=== PATIENT | male | born 1955 | race Caucasian/White ===

== ENCOUNTER 2020-10-25 14:48 | Observation (INO) ==
[2020-10-25] MEDS ORDERED: Ondansetron 4 MG/2 ML VIAL IVP PRN (19:25)
[2020-10-25] MEDS ORDERED: Acetaminophen 325 MG TABLET PO PRN (19:25)
[2020-10-25] MEDS ORDERED: Naloxone 0.4 MG/ML INJ IVP PRN (19:25)
[2020-10-25] MEDS ORDERED: Nitroglycerin 0.4 MG TAB.SUBL SL PRN (19:32)
[2020-10-25] MEDS ORDERED: Perflutren Lipid Microsphere 1.3 ML in 0.9 % Sodium Chloride 8.7 ML IVP PRN (19:33)
[2020-10-25] MEDS ORDERED: Furosemide 20 MG/2 ML VIAL IVP ONE (19:59)
[2020-10-25] MEDS: Metoprolol XL (24 HR) Succ 25 MG TAB.ER.24H PO SCH (20:22)
[2020-10-25] MEDS: Albuterol 2.5 MG/3 ML NEBULIZER IH PRN (20:29)
[2020-10-25 20:30] LABS: Estimated Average Glucose 131 mg/dl; Hemoglobin A1C 6.2 %
[2020-10-26] MEDS: Albuterol 2.5 MG/3 ML NEBULIZER IH PRN ×3 (01:45→14:43)
[2020-10-26 02:52] LABS: Basophils # 0.1 K/mcL (0.0-0.2); Basophils % 0.7 %; Eosinophils # 0.3 K/mcL (0.0-0.6); Eosinophils % 2.4 %; Hematocrit 46.8 % (37.5-50.1); Hemoglobin 15.3 g/dL (12.9-16.9); Immature Granulocytes % 0.3 % (0-4); Lymphocytes # 3.5 K/mcL (0.6-4.6); Mean Corpuscular HGB Conc 32.7 g/dL (31.6-35.5); Mean Corpuscular Hemoglobin 29.8 pg (28.0-33.3); Mean Corpuscular Volume 91.2 fL (83.0-100.0); Mean Platelet Volume 9.9 fL (9.4-12.4); Monocytes # 0.9 K/mcL (0.0-1.3); Monocytes % 8.3 %; Neutrophils # 5.7 K/mcL (1.6-8.9); Platelet Count 186 K/mcL (140-400); Red Blood Count 5.13 M/mcL (4.19-5.50); Red Cell Distribution Width 12.7 % (11.5-14.5); Segmented Neutrophils % 54.3 %; White Blood Count 10.4 K/mcL (4.3-11.1)
[2020-10-26 03:12] LABS: Chol/HDL Ratio 4.2 (0-4.9)
[2020-10-26 03:14] LABS: BUN/Creatinine Ratio 13 (6-26); Blood Urea Nitrogen 13 mg/dL (8-23); Calcium 9.1 mg/dL (8.6-10.3); Carbon Dioxide 24 mEq/L (23-29); Chloride 106 mEq/L (98-107); Glucose 99 mg/dL (70-105); Osmolality,Calculated 288 (280-300); Potassium 3.9 mEq/L (3.5-5.1); Sodium 139 mEq/L (136-145); eGFR For African Americans > 60 (> 60); eGFR For Non-African Americans > 60 (> 60)
[2020-10-26 03:17] LABS: Troponin I < 0.03 ng/mL (< 0.04)
[2020-10-26] MEDS ORDERED: *HR* Heparin 5,000 UNIT/ML VIAL SQ SCH (06:00)
[2020-10-26] MEDS ORDERED: Regadenoson 0.4 MG/5 ML SYRINGE IVP ONE (07:04)
[2020-10-26] MEDS ORDERED: Aspirin 81 MG TAB.CHEW PO SCH (09:00)
[2020-10-26] MEDS ORDERED: Metoprolol XL (24 HR) Succ 25 MG TAB.ER.24H PO SCH ×2 (09:00→21:00)
[2020-10-26] MEDS: Metoprolol XL (24 HR) Succ 25 MG TAB.ER.24H PO SCH (13:28)
[2020-10-26] MEDS ORDERED: Nicotine 2 MG GUM BC PRN (13:49)
[2020-10-26 15:44] VITALS: BP 149/81
[2020-10-27] MEDS ORDERED: Aspirin Enteric Coated 81 MG Tablet PO SCH (09:00)
== END 2020-10-26 16:22 | disposition home or self-care (01) ==
LOC: 3BNU → SUATTDRO 17:44
PROVIDERS: ADMIT Internal Medicine; ATTEND Internal Medicine

== ENCOUNTER 2021-01-15 06:08 | Inpatient (IN) ==
[2021-01-15] MEDS ORDERED: CeFAZolin Syr 2,000MG/20 ML 2,000 MG/20 ML SYRINGE IVPB ONE (06:31)
[2021-01-15] MEDS ORDERED: NiCARdipine 2.5 MG/10 ML Syringe IVPB ONE (06:39)
[2021-01-15] MEDS ORDERED: *HR* Rocuronium Bromide 50 MG/5 ML VIAL ONE ×2 (06:47→11:15)
[2021-01-15] MEDS ORDERED: Papaverine 60 MG/2 ML VIAL IVP ONE (06:48)
[2021-01-15] MEDS ORDERED: Famotidine 20 MG/2 ML VIAL ONE (06:48)
[2021-01-15] MEDS ORDERED: *HR* Etomidate 20 MG/10 ML AMPUL IVP ONE ×3 (06:48→17:47)
[2021-01-15] MEDS ORDERED: Calcium Gluconate 1,000 MG/10 ML VIAL ONE (06:50)
[2021-01-15] MEDS ORDERED: Tranexamic Acid 1,000 MG/10 ML VIAL ONE (06:50)
[2021-01-15] MEDS ORDERED: Protamine Sulfate 250 MG/25 ML VIAL IVP ONE (06:50)
[2021-01-15] MEDS: Ringers Solution, Lactated 1,000 ML IVC SCH ×2 (06:57→23:00)
[2021-01-15] MEDS: Chlorhexidine Rinse 15 ML MOUTHWASH MM SCH ×3 (06:58→20:16)
[2021-01-15] MEDS ORDERED: *HR* Midazolam HCl 5 MG/5 ML VIAL IVP ONE (07:00)
[2021-01-15] MEDS ORDERED: *HR* FentaNYL (PF) 1,000 MCG/20 ML VIAL ONE (07:00)
[2021-01-15] MEDS ORDERED: Heparin 15,000 UNIT in 0.9 % Sodium Chloride 500 ML IV ONE (07:45)
[2021-01-15] MEDS ORDERED: Dextrose 50 % in Water (Vial) 30 ML, Sodium Bicarbonate 20 MEQ, Potassium Chloride 15 M... TH ONE (07:45)
[2021-01-15] MEDS ORDERED: Insulin Human Regular 100 UNIT in 0.9 % Sodium Chloride 100 ML IV PRN (07:45)
[2021-01-15] MEDS ORDERED: Norepinephrine 4 MG in 0.9 % Sodium Chloride 250 ML IVC PRN (07:45)
[2021-01-15] MEDS ORDERED: Dextrose 50 % in Water (Vial) 30 ML, Sodium Bicarbonate 20 MEQ, Lidocaine 1% 5 ML, Insu... TH ONE ×3 (07:45)
[2021-01-15] MEDS ORDERED: Tranexamic Acid 1,000 MG/10 ML VIAL IR ONE (07:49)
[2021-01-15] MEDS ORDERED: *HR* Phenylephrine 10 MG/ML VIAL IVC ONE (07:49)
[2021-01-15] MEDS ORDERED: *HR* Heparin 10,000 UNIT/10 ML VIAL IR ONE (07:49)
[2021-01-15] MEDS ORDERED: *HR* Magnesium Sulfate 2 GM/50 ML PIGGYBACK IVPB ONE (07:49)
[2021-01-15] MEDS ORDERED: Albumin Human 25% 25 GM/100 ML IV.SOLN IVPB ONE (07:49)
[2021-01-15] MEDS ORDERED: Lidocaine 2% Syringe 100 MG/5 ML IVP ONE ×3 (07:49→16:15)
[2021-01-15] MEDS ORDERED: Mannitol 25% vial 12.5 GM/50 ML VIAL IVPB ONE (07:49)
[2021-01-15 08:05] LABS: ABG Base Excess 0 mEq/L (-2 to 3); ABG Chloride 107 mEq/L (98-107); ABG Glucose 103 mg/dL (60-95); ABG HCO3 27 mEq/L (21-27); ABG Ionized Calcium 1.21 mmol/L (1.15-1.35); ABG Oxygen Saturation 100 % (95-98); ABG PCO2 52 mmHg (35-45); ABG PH 7.32 pH Units (7.32-7.45); ABG PO2 196 mmHg (85-104); ABG TCO2 29 mEq/L (20-26)
[2021-01-15] MEDS ORDERED: *HR* Amiodarone 150 MG/3 ML VIAL IVPB ONE (08:41)
[2021-01-15] MEDS ORDERED: Amiodarone Premix 360 MG/200 ML BAG IVC ONE ×2 (08:41→12:03)
[2021-01-15 09:30] LABS: ABG Base Excess -1 mEq/L (-2 to 3); ABG Chloride 105 mEq/L (98-107); ABG Glucose 142 mg/dL (60-95); ABG HCO3 26 mEq/L (21-27); ABG Ionized Calcium 1.19 mmol/L (1.15-1.35); ABG Oxygen Saturation 97 % (95-98); ABG PCO2 53 mmHg (35-45); ABG PO2 100 mmHg (85-104); ABG TCO2 28 mEq/L (20-26)
[2021-01-15 10:47] LABS: ABG Base Excess 1 mEq/L (-2 to 3); ABG Chloride 102 mEq/L (98-107); ABG Glucose 188 mg/dL (60-95); ABG HCO3 25 mEq/L (21-27); ABG Ionized Calcium 0.96 mmol/L (1.15-1.35); ABG Oxygen Saturation 100 % (95-98); ABG PCO2 38 mmHg (35-45); ABG PH 7.43 pH Units (7.32-7.45); ABG PO2 622 mmHg (85-104); ABG TCO2 27 mEq/L (20-26)
[2021-01-15 11:15] LABS: ABG Base Excess -1 mEq/L (-2 to 3); ABG Chloride 103 mEq/L (98-107); ABG Glucose 158 mg/dL (60-95); ABG HCO3 24 mEq/L (21-27); ABG Ionized Calcium 1.14 mmol/L (1.15-1.35); ABG Oxygen Saturation 100 % (95-98); ABG PCO2 38 mmHg (35-45); ABG PH 7.41 pH Units (7.32-7.45); ABG PO2 585 mmHg (85-104); ABG TCO2 25 mEq/L (20-26)
[2021-01-15 11:23] LABS: ABG Base Excess -2 mEq/L (-2 to 3); ABG Chloride 104 mEq/L (98-107); ABG Glucose 147 mg/dL (60-95); ABG HCO3 24 mEq/L (21-27); ABG Ionized Calcium 1.41 mmol/L (1.15-1.35); ABG Oxygen Saturation 97 % (95-98); ABG PCO2 43 mmHg (35-45); ABG PH 7.35 pH Units (7.32-7.45); ABG PO2 90 mmHg (85-104); ABG TCO2 25 mEq/L (20-26)
[2021-01-15] MEDS ORDERED: Albumin Human 5% 12.5 GM/250 ML IV.SOLN IVPB PRN (12:03)
[2021-01-15] MEDS ORDERED: Potassium Chloride 40 MEQ/200 ML BAG IVPB PRN (12:03)
[2021-01-15] MEDS ORDERED: Insulin Regular, Human 100 UNIT/ML IV PRN (12:03)
[2021-01-15] MEDS ORDERED: Acetaminophen 325 MG TABLET PO PRN (12:03)
[2021-01-15] MEDS ORDERED: *HR* LORazepam 2 MG/ML VIAL IVP PRN (12:03)
[2021-01-15] MEDS ORDERED: Naloxone 0.4 MG/ML INJ IVP PRN (12:03)
[2021-01-15] MEDS ORDERED: *HR* Promethazine 25 MG/ML VIAL IM PRN (12:03)
[2021-01-15] MEDS ORDERED: *HR* Dextrose 50 % in Water (Vial) 50 ML VIAL IVP PRN (12:03)
[2021-01-15] MEDS ORDERED: Ondansetron 4 MG/2 ML VIAL IVP PRN (12:03)
[2021-01-15] MEDS ORDERED: Sennosides 8.6 MG TABLET PO PRN (12:03)
[2021-01-15 12:27] LABS: ABG Base Excess 0 mEq/L (-2 to 3); ABG HCO3 27 mEq/L (21-27); ABG Oxygen Saturation 100 % (95-98); ABG PCO2 49 mmHg (35-45); ABG PH 7.34 pH Units (7.32-7.45); ABG PO2 187 mmHg (85-104); ABG TCO2 28 mEq/L (20-26); Blood Gas Modality ASSIST CONTROL; Blood Gas VT 550 cc
[2021-01-15 12:35] LABS: Basophils % 0.3 %; Eosinophils % 0.7 %; Hemoglobin 12.4 g/dL (12.9-16.9); Platelet Count 124 K/mcL (140-400)
[2021-01-15 12:36] LABS: Basophils # 0.1 K/mcL (0.0-0.2); Eosinophils # 0.1 K/mcL (0.0-0.6); Hematocrit 38.1 % (37.5-50.1); Immature Granulocytes % 0.8 % (0-4); Immature Platelets 4.9 % (1.1-6.1); Lymphocytes % 11.2 %; Mean Corpuscular HGB Conc 32.5 g/dL (31.6-35.5); Mean Corpuscular Hemoglobin 29.7 pg (28.0-33.3); Mean Corpuscular Volume 91.1 fL (83.0-100.0); Mean Platelet Volume 9.9 fL (9.4-12.4); Monocytes # 0.9 K/mcL (0.0-1.3); Monocytes % 5.4 %; Neutrophils # 14.2 K/mcL (1.6-8.9); Red Blood Count 4.18 M/mcL (4.19-5.50); Red Cell Distribution Width 12.5 % (11.5-14.5); Segmented Neutrophils % 81.6 %
[2021-01-15 12:39] LABS: White Blood Count 17.4 K/mcL (4.3-11.1)
[2021-01-15 12:45] LABS: INR 1.4; Prothrombin Time 15.5 Seconds (9.4-12.1)
[2021-01-15] MEDS: niCARdipine 20 MG/200 ML MLS IVC SCH ×4 (12:45→23:00)
[2021-01-15 12:48] LABS: Activated Partial Thrombo Time 32.4 Seconds (26.0-36.0)
[2021-01-15] MEDS: *HR* FentaNYL (PF) 100 MCG/2 ML VIAL IVP PRN ×2 (12:55→14:15)
[2021-01-15 13:07] LABS: BUN/Creatinine Ratio 13 (6-26); Blood Urea Nitrogen 11 mg/dL (8-23); Calcium 8.2 mg/dL (8.6-10.3); Carbon Dioxide 26 mEq/L (23-29); Chloride 108 mEq/L (98-107); Glucose 112 mg/dL (70-105); Magnesium 2.4 mg/dL (1.6-2.6); Osmolality,Calculated 288 (280-300); Potassium 3.9 mEq/L (3.5-5.1); Sodium 139 mEq/L (136-145); eGFR For African Americans > 60 (> 60); eGFR For Non-African Americans > 60 (> 60)
[2021-01-15] MEDS: 0.9 % Sodium Chloride 1,000 ML IVC SCH ×2 (13:51→23:00)
[2021-01-15] MEDS: *HR* OxyCODONE/APAP 5/325 TABLET PO PRN (14:43)
[2021-01-15] MEDS: Norepinephrine 4 MG/254 ML IV.SOLN IVC SCH ×2 (14:51→18:26)
[2021-01-15] MEDS: *HR* LORazepam 2 MG/ML VIAL IVP PRN ×2 (16:00→23:41)
[2021-01-15] MEDS ORDERED: Lidocaine 2% Syringe 100 MG/5 ML ONE (16:16)
[2021-01-15] MEDS ORDERED: Furosemide 40 MG/4 ML VIAL ONE (16:16)
[2021-01-15 17:00] LABS: ABG Base Excess -1 mEq/L (-2 to 3); ABG HCO3 26 mEq/L (21-27); ABG Oxygen Saturation 93 % (95-98); ABG PCO2 51 mmHg (35-45); ABG PH 7.31 pH Units (7.32-7.45); ABG PO2 73 mmHg (85-104); ABG TCO2 27 mEq/L (20-26); Blood Gas Modality ASSIST CONTROL; Blood Gas VT 550 cc
[2021-01-15] MEDS: Amiodarone Premix 360 MG/200 ML BAG IVC SCH (17:00)
[2021-01-15 17:18] LABS: Hematocrit 39.7 % (37.5-50.1); Hemoglobin 13.2 g/dL (12.9-16.9)
[2021-01-15] MEDS ORDERED: Furosemide 40 MG/4 ML VIAL IVP ONE ×2 (17:47→21:00)
[2021-01-15] MEDS: FentaNYL (PF) 1,000 MCG/100 ML IV.SOLN IVC SCH (18:25)
[2021-01-15 19:58] LABS: ABG Base Excess -1 mEq/L (-2 to 3); ABG HCO3 27 mEq/L (21-27); ABG Oxygen Saturation 95 % (95-98); ABG PCO2 59 mmHg (35-45); ABG PH 7.27 pH Units (7.32-7.45); ABG PO2 86 mmHg (85-104); ABG TCO2 29 mEq/L (20-26); Blood Gas Modality AF; Blood Gas VT 550 cc
[2021-01-15] MEDS: CeFAZolin 2 GM/120 ML BAG IVPB SCH (20:16)
[2021-01-15 23:57] LABS: ABG Base Excess -2 mEq/L (-2 to 3); ABG HCO3 25 mEq/L (21-27); ABG Oxygen Saturation 96 % (95-98); ABG PCO2 52 mmHg (35-45); ABG PH 7.29 pH Units (7.32-7.45); ABG PO2 95 mmHg (85-104); ABG TCO2 27 mEq/L (20-26); Blood Gas Modality AF; Blood Gas VT 550 cc
[2021-01-16] MEDS: FentaNYL (PF) 1,000 MCG/100 ML IV.SOLN IVC SCH ×4 (01:27→23:07)
[2021-01-16] MEDS: niCARdipine 20 MG/200 ML MLS IVC SCH ×5 (03:03→18:11)
[2021-01-16 03:24] LABS: Basophils % 0.2 %; Hematocrit 43.6 % (37.5-50.1); Hemoglobin 13.7 g/dL (12.9-16.9); Immature Granulocytes % 0.8 % (0-4); Lymphocytes # 1.5 K/mcL (0.6-4.6); Lymphocytes % 8.1 %; Mean Corpuscular HGB Conc 31.4 g/dL (31.6-35.5); Mean Corpuscular Hemoglobin 29.7 pg (28.0-33.3); Mean Corpuscular Volume 94.6 fL (83.0-100.0); Mean Platelet Volume 10.3 fL (9.4-12.4); Monocytes # 1.6 K/mcL (0.0-1.3); Monocytes % 8.3 %; Neutrophils # 15.4 K/mcL (1.6-8.9); Platelet Count 141 K/mcL (140-400); Red Blood Count 4.61 M/mcL (4.19-5.50); Red Cell Distribution Width 13.2 % (11.5-14.5); Segmented Neutrophils % 82.6 %; White Blood Count 18.6 K/mcL (4.3-11.1)
[2021-01-16 03:24] LABS: ABG Base Excess -3 mEq/L (-2 to 3); ABG HCO3 26 mEq/L (21-27); ABG Oxygen Saturation 95 % (95-98); ABG PCO2 61 mmHg (35-45); ABG PH 7.24 pH Units (7.32-7.45); ABG PO2 89 mmHg (85-104); ABG TCO2 28 mEq/L (20-26); Blood Gas Modality AF; Blood Gas VT 550 cc
[2021-01-16] MEDS: Amiodarone Premix 360 MG/200 ML BAG IVC SCH (03:31)
[2021-01-16] MEDS: CeFAZolin 2 GM/120 ML BAG IVPB SCH (03:32)
[2021-01-16 04:28] LABS: Potassium 5.7 mEq/L (3.5-5.1)
[2021-01-16] MEDS ORDERED: Insulin Human Regular 10 UNIT in 0.9 % Sodium Chloride 10 ML IV ONE (07:23)
[2021-01-16] MEDS ORDERED: Calcium Gluconate 1gm/50mL 1 GM/50 ML BAG IVPB ONE (07:23)
[2021-01-16] MEDS ORDERED: *HR* Dextrose 50 % in Water (Vial) 50 ML VIAL IVP ONE (07:23)
[2021-01-16 08:02] LABS: ABG Base Excess -2 mEq/L (-2 to 3); ABG HCO3 25 mEq/L (21-27); ABG Oxygen Saturation 95 % (95-98); ABG PCO2 45 mmHg (35-45); ABG PH 7.34 pH Units (7.32-7.45); ABG PO2 78 mmHg (85-104); ABG TCO2 26 mEq/L (20-26); Blood Gas Modality ASSIST CONTROL; Blood Gas VT 550 cc
[2021-01-16 08:15] LABS: INR 1.3; Prothrombin Time 14.5 Seconds (9.4-12.1)
[2021-01-16 08:17] LABS: Activated Partial Thrombo Time 33.1 Seconds (26.0-36.0)
[2021-01-16 08:21] LABS: Potassium,Urine 133.4 mEq/L; Protein/Creatinine Ratio,Urine 0.18 mg/mg (0.00-0.20); Sodium, Urine 19.8 mEq/L
[2021-01-16 08:28] LABS: Albumin 3.8 g/dL (3.5-5.7); Albumin/Globulin Ratio 1.7 (1.1-2.2); Bilirubin,Direct 0.1 mg/dL (0.0-0.2); Bilirubin,Indirect 0.3 mg/dL (0.0-1.0); Bilirubin,Total 0.4 mg/dL (0.3-1.0); Globulin 2.2 g/dL (2.4-3.5); Phosphorous 3.9 mg/dL (2.7-4.5)
[2021-01-16 08:30] LABS: Amorphous Sediment,Urine Few per hpf (None-Few); Bacteria,Urine Few per hpf (None-Few); Bilirubin,Urine Negative (Negative); Blood,Urine Moderate (Negative); Clarity,Urine Ex.Turbid (Clear); Color,Urine Yellow (Yellow); Glucose,Urine (UA) Normal (Normal); Ketones,Urine Negative (Negative); Leukocyte Esterase,Urine Negative (Negative); Mucus,Urine Few per lpf (None-Few); Nitrite,Urine Negative (Negative); Protein,Urine 30 mg/dL (Neg-Trace); RBC,Urine 30-50 per hpf (0-3); Specific Gravity,Urine > 1.030 (1.010-1.025); Urobilinogen,Urine Normal (Normal)
[2021-01-16] MEDS: Chlorhexidine Rinse 15 ML MOUTHWASH MM SCH ×3 (08:45→20:02)
[2021-01-16] MEDS: Aspirin Enteric Coated 81 MG Tablet PO SCH (08:46)
[2021-01-16] MEDS: Pantoprazole 40 MG VIAL IVP SCH (08:46)
[2021-01-16] MEDS: *HR* Amiodarone 200 MG TABLET PO SCH ×2 (08:46→20:02)
[2021-01-16] MEDS: Metoprolol XL (24 HR) Succ 50 MG TAB.ER.24H PO SCH (08:46)
[2021-01-16] MEDS: Nicotine 21 MG PATCH.TD24 TD SCH (08:47)
[2021-01-16] MEDS ORDERED: FLUoxetine 20 MG CAPSULE PO SCH (09:00)
[2021-01-16] MEDS ORDERED: Metoprolol XL (24 HR) Succ 25 MG TAB.ER.24H PO SCH (09:00)
[2021-01-16] MEDS ORDERED: Dextrose Gel 15 GM/37.5 ML TUBE PO PRN ×2 (13:49)
[2021-01-16] MEDS ORDERED: *HR* Dextrose 50 % in Water (Vial) 50 ML VIAL IVP PRN (13:49)
[2021-01-16] MEDS ORDERED: D5% in Water 1,000 ML IVC PRN (13:49)
[2021-01-16] MEDS: 0.9 % Sodium Chloride 1,000 ML IVC SCH ×2 (14:45→18:11)
[2021-01-16 15:24] LABS: BUN/Creatinine Ratio 17 (6-26); Blood Urea Nitrogen 18 mg/dL (8-23); Calcium 8.5 mg/dL (8.6-10.3); Carbon Dioxide 25 mEq/L (23-29); Chloride 104 mEq/L (98-107); Glucose 145 mg/dL (70-105); Osmolality,Calculated 286 (280-300); Potassium 4.3 mEq/L (3.5-5.1); Sodium 136 mEq/L (136-145); eGFR For African Americans > 60 (> 60); eGFR For Non-African Americans > 60 (> 60)
[2021-01-16] MEDS: Insulin LISPRO 300 UNITS/3 ML VIAL SUBQ SCH ×2 (16:07→20:03)
[2021-01-16] MEDS ORDERED: 0.9 % Sodium Chloride 500 ML ONE (16:08)
[2021-01-16] MEDS: Artificial Tears SOLN 15 ML BOTTLE BOTH EYES SCH ×2 (17:16→20:02)
[2021-01-16] MEDS: Ringers Solution, Lactated 1,000 ML IVC SCH (18:11)
[2021-01-16] MEDS: Vancomycin 1,500 MG/265 ML IV.SOLN IVPB SCH (18:51)
[2021-01-16] MEDS: Piperacillin/Tazobactam 3.375 GM in 0.9 % Sodium Chloride Mini Bag 100 ML IVPB SCH (23:06)
[2021-01-17 03:11] LABS: Basophils % 0.1 %; Eosinophils % 0.1 %; Mean Corpuscular Volume 92.7 fL (83.0-100.0); Red Cell Distribution Width 13.1 % (11.5-14.5)
[2021-01-17 03:13] LABS: Hematocrit 30.7 % (37.5-50.1); Hemoglobin 9.8 g/dL (12.9-16.9); Immature Granulocytes % 0.7 % (0-4); Immature Platelets 5.8 % (1.1-6.1); Lymphocytes # 1.1 K/mcL (0.6-4.6); Lymphocytes % 7.4 %; Mean Corpuscular HGB Conc 31.9 g/dL (31.6-35.5); Mean Corpuscular Hemoglobin 29.6 pg (28.0-33.3); Mean Platelet Volume 9.9 fL (9.4-12.4); Monocytes # 1.1 K/mcL (0.0-1.3); Monocytes % 7.5 %; Red Blood Count 3.31 M/mcL (4.19-5.50); Segmented Neutrophils % 84.2 %; White Blood Count 14.2 K/mcL (4.3-11.1)
[2021-01-17 03:13] LABS: VBG Ionized Calcium 0.99 mmol/L (1.15-1.35)
[2021-01-17 03:31] LABS: BUN/Creatinine Ratio 23 (6-26); Blood Urea Nitrogen 18 mg/dL (8-23); Calcium 6.8 mg/dL (8.6-10.3); Carbon Dioxide 23 mEq/L (23-29); Chloride 112 mEq/L (98-107); Glucose 166 mg/dL (70-105); Magnesium 1.7 mg/dL (1.6-2.6); Osmolality,Calculated 296 (280-300); Phosphorous 2.1 mg/dL (2.7-4.5); Potassium 3.6 mEq/L (3.5-5.1); Sodium 140 mEq/L (136-145); eGFR For African Americans > 60 (> 60); eGFR For Non-African Americans > 60 (> 60)
[2021-01-17 04:12] LABS: Platelet Count 74 K/mcL (140-400)
[2021-01-17] MEDS: FentaNYL (PF) 1,000 MCG/100 ML IV.SOLN IVC SCH ×3 (04:43→22:32)
[2021-01-17 04:44] LABS: ABG Base Excess 3 mEq/L (-2 to 3); ABG HCO3 30 mEq/L (21-27); ABG Oxygen Saturation 94 % (95-98); ABG PCO2 53 mmHg (35-45); ABG PH 7.36 pH Units (7.32-7.45); ABG PO2 75 mmHg (85-104); ABG TCO2 32 mEq/L (20-26); Blood Gas VT 550 cc
[2021-01-17] MEDS: Dexmedetomidine HCl 400 MCG/100 ML MLS IVC SCH ×2 (05:39→17:46)
[2021-01-17] MEDS: Vancomycin 1,500 MG/265 ML IV.SOLN IVPB SCH ×2 (06:16→19:38)
[2021-01-17] MEDS ORDERED: Furosemide 40 MG/4 ML VIAL IVP ONE (08:02)
[2021-01-17] MEDS: Aspirin Enteric Coated 81 MG Tablet PO SCH (08:49)
[2021-01-17] MEDS: Piperacillin/Tazobactam 3.375 GM in 0.9 % Sodium Chloride Mini Bag 100 ML IVPB SCH ×3 (08:49→23:09)
[2021-01-17] MEDS: *HR* Amiodarone 200 MG TABLET PO SCH ×2 (08:49→20:38)
[2021-01-17] MEDS: Pantoprazole 40 MG VIAL IVP SCH (08:49)
[2021-01-17] MEDS: Insulin LISPRO 300 UNITS/3 ML VIAL SUBQ SCH ×4 (08:54→20:39)
[2021-01-17] MEDS: Calcium Gluconate 1gm/50mL 1 GM/50 ML BAG IVPB SCH ×3 (08:55→11:00)
[2021-01-17] MEDS: Artificial Tears SOLN 15 ML BOTTLE BOTH EYES SCH ×4 (08:56→20:38)
[2021-01-17] MEDS: Metoprolol XL (24 HR) Succ 50 MG TAB.ER.24H PO SCH (08:57)
[2021-01-17] MEDS: Chlorhexidine Rinse 15 ML MOUTHWASH MM SCH ×2 (08:57→20:38)
[2021-01-17 09:17] LABS: Basophils % 0.1 %; Eosinophils % 0.1 %; Hemoglobin 11.2 g/dL (12.9-16.9); Immature Granulocytes % 0.7 % (0-4); Red Cell Distribution Width 12.9 % (11.5-14.5)
[2021-01-17 09:18] LABS: Hematocrit 34.5 % (37.5-50.1); Immature Platelets 8.2 % (1.1-6.1); Lymphocytes # 1.1 K/mcL (0.6-4.6); Lymphocytes % 7.1 %; Mean Corpuscular HGB Conc 32.5 g/dL (31.6-35.5); Mean Corpuscular Hemoglobin 29.9 pg (28.0-33.3); Mean Platelet Volume 10.5 fL (9.4-12.4); Monocytes # 1.2 K/mcL (0.0-1.3); Monocytes % 7.8 %; Platelet Count 86 K/mcL (140-400); Red Blood Count 3.75 M/mcL (4.19-5.50); Segmented Neutrophils % 84.2 %; White Blood Count 15.7 K/mcL (4.3-11.1)
[2021-01-17 09:19] LABS: Neutrophils # 13.2 K/mcL (1.6-8.9)
[2021-01-17] MEDS ORDERED: Albumin 25% 25gram/100mL 25 GM/100 ML IV.SOLN IVPB ONE (12:12)
[2021-01-17] MEDS ORDERED: Albumin Human 5% 12.5 GM/250 ML IV.SOLN IVPB ONE (12:19)
[2021-01-17] MEDS: *HR* Amiodarone 200 MG TABLET PO ONE (15:11)
[2021-01-17] MEDS: *HR* LORazepam 2 MG/ML VIAL IVP PRN (17:29)
[2021-01-17] MEDS: niCARdipine 20 MG/200 ML MLS IVC SCH ×3 (17:45→23:11)
[2021-01-17] MEDS: Norepinephrine 4 MG/254 ML IV.SOLN IVC SCH (17:46)
[2021-01-17] MEDS: 0.9 % Sodium Chloride 1,000 ML IVC SCH ×2 (17:46→23:11)
[2021-01-17] MEDS: Nicotine 21 MG PATCH.TD24 TD SCH (19:35)
[2021-01-17] MEDS: clonazePAM 1 MG TABLET PO SCH (20:38)
[2021-01-17] MEDS: Ringers Solution, Lactated 1,000 ML IVC SCH (23:11)
[2021-01-18] MEDS: Norepinephrine 4 MG/254 ML IV.SOLN IVC SCH (02:12)
[2021-01-18] MEDS: *HR* LORazepam 2 MG/ML VIAL IVP PRN ×2 (02:20→14:54)
[2021-01-18] MEDS: FentaNYL (PF) 2,500 MCG/50 ML IV.SOLN IVC SCH ×3 (02:43→21:23)
[2021-01-18 03:28] LABS: Mean Corpuscular Hemoglobin 29.8 pg (28.0-33.3)
[2021-01-18 03:29] LABS: VBG Ionized Calcium 1.05 mmol/L (1.15-1.35)
[2021-01-18 03:30] LABS: Basophils % 0.3 %; Eosinophils # 0.2 K/mcL (0.0-0.6); Eosinophils % 1.2 %; Hemoglobin 10.4 g/dL (12.9-16.9); Immature Granulocytes % 0.6 % (0-4); Immature Platelets 8.2 % (1.1-6.1); Lymphocytes # 1.8 K/mcL (0.6-4.6); Lymphocytes % 12.5 %; Mean Corpuscular HGB Conc 32.5 g/dL (31.6-35.5); Mean Corpuscular Volume 91.7 fL (83.0-100.0); Monocytes # 0.9 K/mcL (0.0-1.3); Monocytes % 6.5 %; Neutrophils # 11.4 K/mcL (1.6-8.9); Red Blood Count 3.49 M/mcL (4.19-5.50); Red Cell Distribution Width 12.7 % (11.5-14.5); Segmented Neutrophils % 78.9 %; White Blood Count 14.5 K/mcL (4.3-11.1)
[2021-01-18 03:35] LABS: Platelet Count 86 K/mcL (140-400)
[2021-01-18 03:48] LABS: BUN/Creatinine Ratio 23 (6-26); Blood Urea Nitrogen 18 mg/dL (8-23); Carbon Dioxide 27 mEq/L (23-29); Chloride 104 mEq/L (98-107); Glucose 118 mg/dL (70-105); Osmolality,Calculated 291 (280-300); Potassium 3.5 mEq/L (3.5-5.1); Sodium 139 mEq/L (136-145); eGFR For African Americans > 60 (> 60); eGFR For Non-African Americans > 60 (> 60)
[2021-01-18 03:49] LABS: Magnesium 2.2 mg/dL (1.6-2.6); Phosphorous 1.8 mg/dL (2.7-4.5)
[2021-01-18 04:39] LABS: ABG Base Excess 3 mEq/L (-2 to 3); ABG HCO3 26 mEq/L (21-27); ABG Oxygen Saturation 96 % (95-98); ABG PCO2 37 mmHg (35-45); ABG PH 7.46 pH Units (7.32-7.45); ABG PO2 75 mmHg (85-104); ABG TCO2 28 mEq/L (20-26); Blood Gas Modality ASSIST CONTROL; Blood Gas VT 550 cc
[2021-01-18] MEDS ORDERED: Potassium Phosphate 44 MEQ in 0.9 % Sodium Chloride 250 ML IVPB ONE (05:30)
[2021-01-18] MEDS ORDERED: Vancomycin 1,750 MG/517.5 ML IV.SOLN IVPB SCH (07:00)
[2021-01-18] MEDS: Insulin LISPRO 300 UNITS/3 ML VIAL SUBQ SCH ×5 (08:02→23:10)
[2021-01-18] MEDS: Dexmedetomidine HCl 400 MCG/100 ML MLS IVC SCH ×2 (08:02→19:39)
[2021-01-18] MEDS: niCARdipine 20 MG/200 ML MLS IVC SCH ×5 (08:02→21:35)
[2021-01-18] MEDS: Nicotine 21 MG PATCH.TD24 TD SCH (08:50)
[2021-01-18] MEDS: Metoprolol XL (24 HR) Succ 50 MG TAB.ER.24H PO SCH (08:50)
[2021-01-18] MEDS: Pantoprazole 40 MG VIAL IVP SCH (08:50)
[2021-01-18] MEDS: *HR* Amiodarone 200 MG TABLET PO SCH ×2 (08:51→20:17)
[2021-01-18] MEDS: Chlorhexidine Rinse 15 ML MOUTHWASH MM SCH ×2 (08:51→20:17)
[2021-01-18] MEDS: Artificial Tears SOLN 15 ML BOTTLE BOTH EYES SCH ×4 (08:51→19:38)
[2021-01-18] MEDS: Piperacillin/Tazobactam 3.375 GM in 0.9 % Sodium Chloride Mini Bag 100 ML IVPB SCH ×3 (08:51→23:10)
[2021-01-18] MEDS: Aspirin 81 MG TAB.CHEW PO SCH (09:22)
[2021-01-18] MEDS: *HR* Heparin 5,000 UNIT/ML VIAL SQ SCH ×2 (13:58→21:24)
[2021-01-18] MEDS: 0.9 % Sodium Chloride 1,000 ML IVC SCH (19:38)
[2021-01-18] MEDS: Docusate Oral Soln 100 MG/10 ML UDC GTUBE SCH (20:17)
[2021-01-18] MEDS: clonazePAM 1 MG TABLET PO SCH (20:17)
[2021-01-18] MEDS: Ringers Solution, Lactated 1,000 ML IVC SCH (21:36)
[2021-01-19 03:18] LABS: Segmented Neutrophils % 75.6 %
[2021-01-19 03:20] LABS: Basophils % 0.2 %; Eosinophils # 0.3 K/mcL (0.0-0.6); Eosinophils % 2.5 %; Hematocrit 31.4 % (37.5-50.1); Hemoglobin 9.9 g/dL (12.9-16.9); Immature Granulocytes % 0.8 % (0-4); Immature Platelets 6.1 % (1.1-6.1); Lymphocytes # 1.6 K/mcL (0.6-4.6); Lymphocytes % 13.3 %; Mean Corpuscular HGB Conc 31.5 g/dL (31.6-35.5); Mean Corpuscular Hemoglobin 29.5 pg (28.0-33.3); Mean Corpuscular Volume 93.5 fL (83.0-100.0); Mean Platelet Volume 10.3 fL (9.4-12.4); Monocytes # 0.9 K/mcL (0.0-1.3); Monocytes % 7.6 %; Platelet Count 126 K/mcL (140-400); Red Blood Count 3.36 M/mcL (4.19-5.50); White Blood Count 12.1 K/mcL (4.3-11.1)
[2021-01-19 03:21] LABS: Neutrophils # 9.2 K/mcL (1.6-8.9)
[2021-01-19 03:33] LABS: VBG Ionized Calcium 1.09 mmol/L (1.15-1.35)
[2021-01-19 03:38] LABS: BUN/Creatinine Ratio 23 (6-26); Blood Urea Nitrogen 18 mg/dL (8-23); Calcium 8.1 mg/dL (8.6-10.3); Carbon Dioxide 29 mEq/L (23-29); Chloride 104 mEq/L (98-107); Glucose 102 mg/dL (70-105); Osmolality,Calculated 290 (280-300); Sodium 139 mEq/L (136-145); eGFR For African Americans > 60 (> 60); eGFR For Non-African Americans > 60 (> 60)
[2021-01-19] MEDS: Insulin LISPRO 300 UNITS/3 ML VIAL SUBQ SCH ×6 (03:55→23:34)
[2021-01-19 03:59] LABS: Magnesium 2.2 mg/dL (1.6-2.6); Phosphorous 2.7 mg/dL (2.7-4.5)
[2021-01-19] MEDS: *HR* Heparin 5,000 UNIT/ML VIAL SQ SCH ×3 (05:02→20:17)
[2021-01-19 05:09] LABS: ABG Base Excess 5 mEq/L (-2 to 3); ABG HCO3 31 mEq/L (21-27); ABG Oxygen Saturation 100 % (95-98); ABG PCO2 53 mmHg (35-45); ABG PH 7.38 pH Units (7.32-7.45); ABG PO2 243 mmHg (85-104); ABG TCO2 32 mEq/L (20-26); Blood Gas Modality AF; Blood Gas VT 550 cc
[2021-01-19] MEDS: niCARdipine 20 MG/200 ML MLS IVC SCH ×5 (07:59→23:29)
[2021-01-19] MEDS: Metoprolol XL (24 HR) Succ 50 MG TAB.ER.24H PO SCH (07:59)
[2021-01-19] MEDS: Nicotine 21 MG PATCH.TD24 TD SCH (08:08)
[2021-01-19] MEDS: Chlorhexidine Rinse 15 ML MOUTHWASH MM SCH ×2 (08:08→20:17)
[2021-01-19] MEDS: Piperacillin/Tazobactam 3.375 GM in 0.9 % Sodium Chloride Mini Bag 100 ML IVPB SCH ×3 (08:09→23:21)
[2021-01-19] MEDS: Docusate Oral Soln 100 MG/10 ML UDC GTUBE SCH ×2 (08:09→20:17)
[2021-01-19] MEDS: Pantoprazole 40 MG VIAL IVP SCH (08:09)
[2021-01-19] MEDS: Aspirin 81 MG TAB.CHEW PO SCH (08:09)
[2021-01-19] MEDS: *HR* Amiodarone 200 MG TABLET PO SCH ×2 (08:09→20:17)
[2021-01-19] MEDS: Artificial Tears SOLN 15 ML BOTTLE BOTH EYES SCH ×4 (08:10→20:19)
[2021-01-19] MEDS: FentaNYL (PF) 2,500 MCG/50 ML IV.SOLN IVC SCH ×2 (09:17→22:00)
[2021-01-19] MEDS: Dexmedetomidine HCl 400 MCG/100 ML MLS IVC SCH ×2 (10:15→23:07)
[2021-01-19] MEDS: 0.9 % Sodium Chloride 1,000 ML IVC SCH ×2 (10:15→23:06)
[2021-01-19] MEDS: Ipratropium/Albuterol Neb 3 ML IH SCH ×4 (11:33→23:37)
[2021-01-19] MEDS: Norepinephrine 4 MG/254 ML IV.SOLN IVC SCH (12:07)
[2021-01-19] MEDS: QUEtiapine Fumarate 25 MG TABLET PO SCH ×2 (12:13→20:17)
[2021-01-19] MEDS ORDERED: *HR* Amiodarone 200 MG TABLET PO ONE (14:11)
[2021-01-19] MEDS: *HR* LORazepam 2 MG/ML VIAL IVP PRN (14:43)
[2021-01-19] MEDS: Sulfamethoxazole/Trimeth Oral Soln 400-80mg/10 ML UDC GTUBE SCH ×2 (16:16→20:18)
[2021-01-19] MEDS: clonazePAM 1 MG TABLET PO SCH (20:17)
[2021-01-20 03:43] LABS: VBG Ionized Calcium 1.12 mmol/L (1.15-1.35)
[2021-01-20 03:44] LABS: Basophils # 0.1 K/mcL (0.0-0.2); Basophils % 0.6 %; Eosinophils # 0.3 K/mcL (0.0-0.6); Eosinophils % 3.7 %; Hematocrit 28.6 % (37.5-50.1); Hemoglobin 9.2 g/dL (12.9-16.9); Immature Granulocytes % 1.3 % (0-4); Lymphocytes # 1.5 K/mcL (0.6-4.6); Lymphocytes % 17.8 %; Mean Corpuscular HGB Conc 32.2 g/dL (31.6-35.5); Mean Corpuscular Hemoglobin 29.8 pg (28.0-33.3); Mean Corpuscular Volume 92.6 fL (83.0-100.0); Mean Platelet Volume 10.1 fL (9.4-12.4); Monocytes # 0.8 K/mcL (0.0-1.3); Monocytes % 9.6 %; Neutrophils # 5.8 K/mcL (1.6-8.9); Platelet Count 146 K/mcL (140-400); Red Blood Count 3.09 M/mcL (4.19-5.50); White Blood Count 8.7 K/mcL (4.3-11.1)
[2021-01-20] MEDS: Ipratropium/Albuterol Neb 3 ML IH SCH ×6 (03:49→23:19)
[2021-01-20] MEDS: Insulin LISPRO 300 UNITS/3 ML VIAL SUBQ SCH ×6 (03:51→23:45)
[2021-01-20] MEDS: niCARdipine 20 MG/200 ML MLS IVC SCH ×4 (03:52→16:19)
[2021-01-20 04:02] LABS: BUN/Creatinine Ratio 24 (6-26); Blood Urea Nitrogen 18 mg/dL (8-23); Calcium 8.3 mg/dL (8.6-10.3); Carbon Dioxide 32 mEq/L (23-29); Chloride 103 mEq/L (98-107); Glucose 135 mg/dL (70-105); Magnesium 2.3 mg/dL (1.6-2.6); Osmolality,Calculated 294 (280-300); Potassium 3.9 mEq/L (3.5-5.1); Sodium 140 mEq/L (136-145); eGFR For African Americans > 60 (> 60); eGFR For Non-African Americans > 60 (> 60)
[2021-01-20 04:49] LABS: ABG Base Excess 7 mEq/L (-2 to 3); ABG HCO3 34 mEq/L (21-27); ABG Oxygen Saturation 93 % (95-98); ABG PCO2 60 mmHg (35-45); ABG PH 7.36 pH Units (7.32-7.45); ABG PO2 74 mmHg (85-104); ABG TCO2 36 mEq/L (20-26); Blood Gas Modality ASSIST CONTROL; Blood Gas VT 550 cc
[2021-01-20] MEDS: *HR* Heparin 5,000 UNIT/ML VIAL SQ SCH ×3 (05:14→20:42)
[2021-01-20] MEDS: Ringers Solution, Lactated 1,000 ML IVC SCH (05:16)
[2021-01-20] MEDS: QUEtiapine Fumarate 25 MG TABLET PO SCH ×2 (07:40→20:42)
[2021-01-20] MEDS: *HR* Amiodarone 200 MG TABLET PO SCH ×2 (07:40→20:42)
[2021-01-20] MEDS: Nicotine 21 MG PATCH.TD24 TD SCH (07:41)
[2021-01-20] MEDS: Docusate Oral Soln 100 MG/10 ML UDC GTUBE SCH ×2 (07:41→20:42)
[2021-01-20] MEDS: Chlorhexidine Rinse 15 ML MOUTHWASH MM SCH ×2 (07:41→20:41)
[2021-01-20] MEDS: Artificial Tears SOLN 15 ML BOTTLE BOTH EYES SCH ×4 (07:41→20:43)
[2021-01-20] MEDS: Pantoprazole 40 MG VIAL IVP SCH (07:41)
[2021-01-20] MEDS: Aspirin 81 MG TAB.CHEW PO SCH (07:41)
[2021-01-20] MEDS: Metoprolol XL (24 HR) Succ 50 MG TAB.ER.24H PO SCH (07:42)
[2021-01-20] MEDS: Piperacillin/Tazobactam 3.375 GM in 0.9 % Sodium Chloride Mini Bag 100 ML IVPB SCH ×3 (07:46→23:43)
[2021-01-20] MEDS: Sulfamethoxazole/Trimeth Oral Soln 400-80mg/10 ML UDC GTUBE SCH ×2 (08:14→20:41)
[2021-01-20] MEDS ORDERED: Furosemide 40 MG/4 ML VIAL IVP ONE (09:49)
[2021-01-20] MEDS: FentaNYL (PF) 2,500 MCG/50 ML IV.SOLN IVC SCH (12:04)
[2021-01-20] MEDS: 0.9 % Sodium Chloride 1,000 ML IVC SCH (12:06)
[2021-01-20] MEDS: Dexmedetomidine HCl 400 MCG/100 ML MLS IVC SCH (12:07)
[2021-01-20] MEDS ORDERED: *HR* Metoprolol 5 MG/5 ML VIAL IVP ONE (12:40)
[2021-01-20] MEDS: *HR* Metoprolol 5 MG/5 ML VIAL IVP PRN (12:50)
[2021-01-20] MEDS ORDERED: *HR* Amiodarone 200 MG TABLET PO STA (13:12)
[2021-01-20] MEDS ORDERED: Albumin 25% 25gram/100mL 25 GM/100 ML IV.SOLN ONE (14:28)
[2021-01-20] MEDS: Albumin 25% 25gram/100mL 25 GM/100 ML IV.SOLN IVC SCH ×2 (16:18→19:06)
[2021-01-20] MEDS: *HR* Amiodarone 200 MG TABLET PO ONE (16:22)
[2021-01-20] MEDS: clonazePAM 1 MG TABLET PO SCH (20:42)
[2021-01-20] MEDS: *HR* LORazepam 2 MG/ML VIAL IVP PRN (20:58)
[2021-01-21] MEDS: FentaNYL (PF) 2,500 MCG/50 ML IV.SOLN IVC SCH ×2 (00:08→14:40)
[2021-01-21] MEDS: Dexmedetomidine HCl 400 MCG/100 ML MLS IVC SCH ×2 (01:05→16:21)
[2021-01-21] MEDS: 0.9 % Sodium Chloride 1,000 ML IVC SCH ×2 (01:05→15:13)
[2021-01-21] MEDS: niCARdipine 20 MG/200 ML MLS IVC SCH ×7 (01:05→20:49)
[2021-01-21] MEDS: Ipratropium/Albuterol Neb 3 ML IH SCH ×6 (03:49→23:40)
[2021-01-21] MEDS: Ringers Solution, Lactated 1,000 ML IVC SCH (04:08)
[2021-01-21] MEDS: Insulin LISPRO 300 UNITS/3 ML VIAL SUBQ SCH ×5 (04:09→20:48)
[2021-01-21 04:24] LABS: ABG Base Excess 7 mEq/L (-2 to 3); ABG HCO3 34 mEq/L (21-27); ABG Oxygen Saturation 91 % (95-98); ABG PCO2 62 mmHg (35-45); ABG PH 7.35 pH Units (7.32-7.45); ABG PO2 67 mmHg (85-104); ABG TCO2 36 mEq/L (20-26); Blood Gas VT 550 cc
[2021-01-21 04:34] LABS: Basophils # 0.1 K/mcL (0.0-0.2); Basophils % 0.4 %; Eosinophils # 0.4 K/mcL (0.0-0.6); Eosinophils % 3.4 %; Hematocrit 31.3 % (37.5-50.1); Hemoglobin 9.8 g/dL (12.9-16.9); Immature Granulocytes % 1.6 % (0-4); Lymphocytes # 1.4 K/mcL (0.6-4.6); Lymphocytes % 12.6 %; Mean Corpuscular HGB Conc 31.3 g/dL (31.6-35.5); Mean Corpuscular Hemoglobin 29.8 pg (28.0-33.3); Mean Corpuscular Volume 95.1 fL (83.0-100.0); Mean Platelet Volume 9.7 fL (9.4-12.4); Monocytes # 1.1 K/mcL (0.0-1.3); Monocytes % 9.6 %; Neutrophils # 8.2 K/mcL (1.6-8.9); Platelet Count 175 K/mcL (140-400); Red Blood Count 3.29 M/mcL (4.19-5.50); Segmented Neutrophils % 72.4 %; White Blood Count 11.4 K/mcL (4.3-11.1)
[2021-01-21 04:36] LABS: VBG Ionized Calcium 1.12 mmol/L (1.15-1.35)
[2021-01-21 04:53] LABS: BUN/Creatinine Ratio 22 (6-26); Blood Urea Nitrogen 19 mg/dL (8-23); Calcium 8.8 mg/dL (8.6-10.3); Carbon Dioxide 33 mEq/L (23-29); Chloride 100 mEq/L (98-107); Glucose 148 mg/dL (70-105); Magnesium 2.4 mg/dL (1.6-2.6); Osmolality,Calculated 295 (280-300); Phosphorous 3.9 mg/dL (2.7-4.5); Sodium 140 mEq/L (136-145); eGFR For African Americans > 60 (> 60); eGFR For Non-African Americans > 60 (> 60)
[2021-01-21] MEDS: *HR* Heparin 5,000 UNIT/ML VIAL SQ SCH ×3 (05:09→20:47)
[2021-01-21] MEDS: *HR* LORazepam 2 MG/ML VIAL IVP PRN (05:09)
[2021-01-21] MEDS: *HR* Metoprolol 5 MG/5 ML VIAL IVP PRN (05:54)
[2021-01-21] MEDS: Aspirin 81 MG TAB.CHEW PO SCH (07:59)
[2021-01-21] MEDS: Norepinephrine 4 MG/254 ML IV.SOLN IVC SCH ×2 (07:59→13:16)
[2021-01-21] MEDS: QUEtiapine Fumarate 25 MG TABLET PO SCH ×2 (07:59→20:47)
[2021-01-21] MEDS: Metoprolol XL (24 HR) Succ 50 MG TAB.ER.24H PO SCH (07:59)
[2021-01-21] MEDS: Docusate Oral Soln 100 MG/10 ML UDC GTUBE SCH ×2 (08:00→20:47)
[2021-01-21] MEDS: Pantoprazole 40 MG VIAL IVP SCH (08:00)
[2021-01-21] MEDS: Nicotine 21 MG PATCH.TD24 TD SCH (08:00)
[2021-01-21] MEDS: Artificial Tears SOLN 15 ML BOTTLE BOTH EYES SCH ×4 (08:01→20:48)
[2021-01-21] MEDS: Chlorhexidine Rinse 15 ML MOUTHWASH MM SCH ×2 (09:21→20:47)
[2021-01-21] MEDS: Piperacillin/Tazobactam 3.375 GM in 0.9 % Sodium Chloride Mini Bag 100 ML IVPB SCH ×2 (09:21→16:54)
[2021-01-21] MEDS: *HR* Amiodarone 200 MG TABLET PO SCH ×2 (09:23→20:47)
[2021-01-21] MEDS: Sulfamethoxazole/Trimeth Oral Soln 400-80mg/10 ML UDC GTUBE SCH ×2 (09:23→20:48)
[2021-01-21 11:09] LABS: Albumin 3.7 g/dL (3.5-5.7); Albumin/Globulin Ratio 1.4 (1.1-2.2); Bilirubin,Direct 0.2 mg/dL (0.0-0.2); Bilirubin,Indirect 0.3 mg/dL (0.0-1.0); Bilirubin,Total 0.5 mg/dL (0.3-1.0); Globulin 2.6 g/dL (2.4-3.5); Total Protein 6.3 g/dL (6.4-8.9)
[2021-01-21] MEDS ORDERED: Furosemide 20 MG/2 ML VIAL IVP ONE (14:55)
[2021-01-21] MEDS: clonazePAM 1 MG TABLET PO SCH (20:47)
[2021-01-22] MEDS: niCARdipine 20 MG/200 ML MLS IVC SCH ×7 (00:12→23:42)
[2021-01-22] MEDS: Insulin LISPRO 300 UNITS/3 ML VIAL SUBQ SCH ×7 (00:12→23:45)
[2021-01-22] MEDS: Piperacillin/Tazobactam 3.375 GM in 0.9 % Sodium Chloride Mini Bag 100 ML IVPB SCH ×4 (00:12→23:51)
[2021-01-22] MEDS: Ipratropium/Albuterol Neb 3 ML IH SCH ×6 (03:25→23:42)
[2021-01-22] MEDS: FentaNYL (PF) 2,500 MCG/50 ML IV.SOLN IVC SCH ×2 (04:00→18:18)
[2021-01-22] MEDS: 0.9 % Sodium Chloride 1,000 ML IVC SCH ×2 (04:00→19:21)
[2021-01-22] MEDS: Dexmedetomidine HCl 400 MCG/100 ML MLS IVC SCH ×2 (04:01→19:20)
[2021-01-22 04:06] LABS: ABG Base Excess 9 mEq/L (-2 to 3); ABG HCO3 35 mEq/L (21-27); ABG Oxygen Saturation 94 % (95-98); ABG PCO2 54 mmHg (35-45); ABG PH 7.41 pH Units (7.32-7.45); ABG PO2 74 mmHg (85-104); ABG TCO2 36 mEq/L (20-26); Blood Gas VT 550 cc
[2021-01-22 04:07] LABS: Basophils % 0.3 %; Eosinophils # 0.4 K/mcL (0.0-0.6); Eosinophils % 3.4 %; Hematocrit 29.3 % (37.5-50.1); Hemoglobin 9.2 g/dL (12.9-16.9); Lymphocytes # 1.3 K/mcL (0.6-4.6); Lymphocytes % 10.8 %; Mean Corpuscular HGB Conc 31.4 g/dL (31.6-35.5); Mean Corpuscular Hemoglobin 29.9 pg (28.0-33.3); Mean Corpuscular Volume 95.1 fL (83.0-100.0); Mean Platelet Volume 9.9 fL (9.4-12.4); Monocytes # 1.1 K/mcL (0.0-1.3); Monocytes % 8.8 %; Neutrophils # 9.2 K/mcL (1.6-8.9); Platelet Count 215 K/mcL (140-400); Red Blood Count 3.08 M/mcL (4.19-5.50); Red Cell Distribution Width 13.2 % (11.5-14.5); Segmented Neutrophils % 74.7 %; White Blood Count 12.3 K/mcL (4.3-11.1)
[2021-01-22 04:14] LABS: Magnesium 2.3 mg/dL (1.6-2.6); Phosphorous 3.5 mg/dL (2.7-4.5)
[2021-01-22 04:15] LABS: Alanine Aminotransferase 24 Units/L (7-52); Albumin 3.5 g/dL (3.5-5.7); Albumin/Globulin Ratio 1.2 (1.1-2.2); Alkaline Phosphatase 45 Units/L (34-104); Aspartate Amino Transferase 31 Units/L (13-39); BUN/Creatinine Ratio 28 (6-26); Bilirubin,Direct 0.3 mg/dL (0.0-0.2); Bilirubin,Indirect 0.3 mg/dL (0.0-1.0); Bilirubin,Total 0.6 mg/dL (0.3-1.0); Blood Urea Nitrogen 21 mg/dL (8-23); Calcium 9.2 mg/dL (8.6-10.3); Carbon Dioxide 36 mEq/L (23-29); Chloride 101 mEq/L (98-107); Globulin 2.9 g/dL (2.4-3.5); Glucose 113 mg/dL (70-105); Osmolality,Calculated 300 (280-300); Potassium 3.9 mEq/L (3.5-5.1); Sodium 143 mEq/L (136-145); Total Protein 6.4 g/dL (6.4-8.9); Triglycerides 129 mg/dL (< 150); eGFR For African Americans > 60 (> 60); eGFR For Non-African Americans > 60 (> 60)
[2021-01-22 04:16] LABS: VBG Ionized Calcium 1.13 mmol/L (1.15-1.35)
[2021-01-22] MEDS: *HR* Heparin 5,000 UNIT/ML VIAL SQ SCH (05:21)
[2021-01-22] MEDS: Ringers Solution, Lactated 1,000 ML IVC SCH (05:21)
[2021-01-22] MEDS: Artificial Tears SOLN 15 ML BOTTLE BOTH EYES SCH ×4 (07:58→21:42)
[2021-01-22] MEDS: QUEtiapine Fumarate 25 MG TABLET PO SCH ×2 (08:08→21:32)
[2021-01-22] MEDS: Docusate Oral Soln 100 MG/10 ML UDC GTUBE SCH ×2 (08:08→21:32)
[2021-01-22] MEDS: Sulfamethoxazole/Trimeth Oral Soln 400-80mg/10 ML UDC GTUBE SCH ×2 (08:11→21:34)
[2021-01-22] MEDS: Aspirin 81 MG TAB.CHEW PO SCH (08:11)
[2021-01-22] MEDS: Pantoprazole 40 MG VIAL IVP SCH (08:11)
[2021-01-22] MEDS: *HR* Amiodarone 200 MG TABLET PO SCH ×2 (08:11→21:32)
[2021-01-22] MEDS: Chlorhexidine Rinse 15 ML MOUTHWASH MM SCH ×2 (08:12→21:32)
[2021-01-22] MEDS ORDERED: Furosemide 20 MG/2 ML VIAL IVP ONE (10:28)
[2021-01-22] MEDS ORDERED: *HR* Heparin 5,000 UNIT/ML VIAL IVP PRN ×4 (14:01→14:30)
[2021-01-22] MEDS ORDERED: Heparin 25,000UNIT/250ML 1/2NS 25,000 UNIT/250 ML IV.SOLN IVC SCH (14:15)
[2021-01-22 14:55] LABS: Hemoglobin 9.3 g/dL (12.9-16.9); Mean Corpuscular HGB Conc 32.1 g/dL (31.6-35.5); Mean Corpuscular Hemoglobin 29.4 pg (28.0-33.3); Mean Corpuscular Volume 91.8 fL (83.0-100.0); Platelet Count 228 K/mcL (140-400); Red Blood Count 3.16 M/mcL (4.19-5.50); Red Cell Distribution Width 13.2 % (11.5-14.5); White Blood Count 12.4 K/mcL (4.3-11.1)
[2021-01-22] MEDS: Heparin 25,000UNIT/250ML 1/2NS 25,000 UNIT/250 ML IV.SOLN IVC SCH (14:57)
[2021-01-22 15:05] LABS: INR 1.4; Prothrombin Time 15.7 Seconds (9.4-12.1)
[2021-01-22 15:06] LABS: Heparin anti-factor XA UFH 0.09 IU/mL (0.30-0.70)
[2021-01-22] MEDS: Norepinephrine 4 MG/254 ML IV.SOLN IVC SCH (19:13)
[2021-01-22] MEDS: clonazePAM 1 MG TABLET PO SCH (21:32)
[2021-01-22] MEDS: Artificial Tears SOLN 15 ML BOTTLE BOTH EYES PRN (23:45)
[2021-01-23] MEDS: Ipratropium/Albuterol Neb 3 ML IH SCH ×6 (03:42→23:21)
[2021-01-23] MEDS: niCARdipine 20 MG/200 ML MLS IVC SCH ×6 (03:58→23:40)
[2021-01-23] MEDS: Insulin LISPRO 300 UNITS/3 ML VIAL SUBQ SCH ×6 (04:08→23:40)
[2021-01-23] MEDS: Artificial Tears SOLN 15 ML BOTTLE BOTH EYES PRN (04:10)
[2021-01-23 04:27] LABS: Basophils # 0.1 K/mcL (0.0-0.2); Basophils % 0.4 %; Eosinophils # 0.3 K/mcL (0.0-0.6); Eosinophils % 2.7 %; Hemoglobin 9.1 g/dL (12.9-16.9); Immature Granulocytes % 1.9 % (0-4); Lymphocytes # 1.1 K/mcL (0.6-4.6); Lymphocytes % 8.6 %; Mean Corpuscular HGB Conc 31.4 g/dL (31.6-35.5); Mean Corpuscular Hemoglobin 29.4 pg (28.0-33.3); Mean Corpuscular Volume 93.9 fL (83.0-100.0); Monocytes # 1.1 K/mcL (0.0-1.3); Monocytes % 8.6 %; Neutrophils # 9.9 K/mcL (1.6-8.9); Nucleated Red Blood Cells 0.2 /100 WBC (0); Platelet Count 256 K/mcL (140-400); Red Blood Count 3.09 M/mcL (4.19-5.50); Red Cell Distribution Width 13.5 % (11.5-14.5); Segmented Neutrophils % 77.8 %; White Blood Count 12.7 K/mcL (4.3-11.1)
[2021-01-23 04:39] LABS: VBG Ionized Calcium 1.07 mmol/L (1.15-1.35)
[2021-01-23 04:43] LABS: BUN/Creatinine Ratio 28 (6-26); Blood Urea Nitrogen 25 mg/dL (8-23); Calcium 8.9 mg/dL (8.6-10.3); Carbon Dioxide 32 mEq/L (23-29); Chloride 104 mEq/L (98-107); Glucose 232 mg/dL (70-105); Magnesium 2.2 mg/dL (1.6-2.6); Osmolality,Calculated 306 (280-300); Phosphorous 3.2 mg/dL (2.7-4.5); Potassium 4.3 mEq/L (3.5-5.1); Sodium 142 mEq/L (136-145); eGFR For African Americans > 60 (> 60); eGFR For Non-African Americans > 60 (> 60)
[2021-01-23 04:57] LABS: ABG Base Excess 8 mEq/L (-2 to 3); ABG HCO3 34 mEq/L (21-27); ABG Oxygen Saturation 97 % (95-98); ABG PCO2 53 mmHg (35-45); ABG PH 7.41 pH Units (7.32-7.45); ABG PO2 97 mmHg (85-104); ABG TCO2 35 mEq/L (20-26); Blood Gas VT 550 cc
[2021-01-23] MEDS: *HR* Metoprolol 5 MG/5 ML VIAL IVP PRN ×2 (06:21→23:41)
[2021-01-23] MEDS: *HR* OxyCODONE/APAP 5/325 TABLET PO PRN ×2 (08:14→13:09)
[2021-01-23] MEDS: Aspirin 81 MG TAB.CHEW PO SCH (08:15)
[2021-01-23] MEDS: Docusate Oral Soln 100 MG/10 ML UDC GTUBE SCH ×2 (08:15→19:59)
[2021-01-23] MEDS: QUEtiapine Fumarate 25 MG TABLET PO SCH ×2 (08:15→19:59)
[2021-01-23] MEDS: Chlorhexidine Rinse 15 ML MOUTHWASH MM SCH ×2 (08:15→19:58)
[2021-01-23] MEDS: *HR* Amiodarone 200 MG TABLET PO SCH ×2 (08:15→19:59)
[2021-01-23] MEDS: Piperacillin/Tazobactam 3.375 GM in 0.9 % Sodium Chloride Mini Bag 100 ML IVPB SCH ×3 (08:16→23:41)
[2021-01-23] MEDS: Sulfamethoxazole/Trimeth Oral Soln 400-80mg/10 ML UDC GTUBE SCH ×2 (08:16→19:58)
[2021-01-23] MEDS: Pantoprazole 40 MG VIAL IVP SCH (08:16)
[2021-01-23] MEDS: Dexmedetomidine HCl 400 MCG/100 ML MLS IVC SCH ×2 (08:17→20:01)
[2021-01-23] MEDS: Artificial Tears SOLN 15 ML BOTTLE BOTH EYES SCH ×4 (08:30→20:00)
[2021-01-23 10:47] LABS: Appearance of Body Fluid Slightly Hazy (Clear); Volume of Body Fluid 19 mL
[2021-01-23 12:24] LABS: Amorphous Sediment,Urine Few per hpf (None-Few); Bilirubin,Urine Negative (Negative); Blood,Urine Negative (Negative); Clarity,Urine Turbid (Clear); Color,Urine Light-Yellow (Yellow); Glucose,Urine (UA) 100 mg/dL (Normal); Ketones,Urine Negative (Negative); Leukocyte Esterase,Urine Negative (Negative); Nitrite,Urine Negative (Negative); PH,Urine 7.5 pH Units (5.0-8.0); Protein,Urine Trace mg/dL (Neg-Trace); Specific Gravity,Urine 1.018 (1.010-1.025); Urobilinogen,Urine Normal (Normal); WBC,Urine 0-3 per hpf (0-3)
[2021-01-23] MEDS: Norepinephrine 4 MG/254 ML IV.SOLN IVC SCH (12:40)
[2021-01-23] MEDS: Heparin 25,000UNIT/250ML 1/2NS 25,000 UNIT/250 ML IV.SOLN IVC SCH ×2 (12:44→13:08)
[2021-01-23] MEDS: FentaNYL (PF) 2,500 MCG/50 ML IV.SOLN IVC SCH (19:49)
[2021-01-23] MEDS: clonazePAM 1 MG TABLET PO SCH (19:58)
[2021-01-23] MEDS: Metoprolol XL (24 HR) Succ 50 MG TAB.ER.24H PO SCH (20:06)
[2021-01-23] MEDS: *HR* Heparin 5,000 UNIT/ML VIAL SQ SCH (20:07)
[2021-01-24 03:26] LABS: VBG Ionized Calcium 1.15 mmol/L (1.15-1.35)
[2021-01-24 03:30] LABS: Basophils # 0.1 K/mcL (0.0-0.2); Basophils % 0.6 %; Eosinophils # 0.8 K/mcL (0.0-0.6); Eosinophils % 7.1 %; Hematocrit 30.6 % (37.5-50.1); Hemoglobin 9.3 g/dL (12.9-16.9); Immature Granulocytes % 2.5 % (0-4); Lymphocytes # 1.9 K/mcL (0.6-4.6); Mean Corpuscular HGB Conc 30.4 g/dL (31.6-35.5); Mean Corpuscular Hemoglobin 29.2 pg (28.0-33.3); Mean Corpuscular Volume 96.2 fL (83.0-100.0); Mean Platelet Volume 9.7 fL (9.4-12.4); Monocytes # 1.2 K/mcL (0.0-1.3); Monocytes % 10.4 %; Neutrophils # 6.9 K/mcL (1.6-8.9); Nucleated Red Blood Cells 0.2 /100 WBC (0); Platelet Count 305 K/mcL (140-400); Red Blood Count 3.18 M/mcL (4.19-5.50); Red Cell Distribution Width 13.7 % (11.5-14.5); Segmented Neutrophils % 62.4 %; White Blood Count 11.1 K/mcL (4.3-11.1)
[2021-01-24 03:43] LABS: Heparin anti-factor XA UFH 0.39 IU/mL (0.30-0.70)
[2021-01-24 03:48] LABS: BUN/Creatinine Ratio 30 (6-26); Blood Urea Nitrogen 29 mg/dL (8-23); Carbon Dioxide 33 mEq/L (23-29); Chloride 107 mEq/L (98-107); Glucose 148 mg/dL (70-105); Magnesium 2.5 mg/dL (1.6-2.6); Osmolality,Calculated 309 (280-300); Phosphorous 5.3 mg/dL (2.7-4.5); Potassium 4.6 mEq/L (3.5-5.1); Sodium 145 mEq/L (136-145); eGFR For African Americans > 60 (> 60); eGFR For Non-African Americans > 60 (> 60)
[2021-01-24] MEDS: niCARdipine 20 MG/200 ML MLS IVC SCH (03:56)
[2021-01-24] MEDS: Insulin LISPRO 300 UNITS/3 ML VIAL SUBQ SCH ×6 (03:56→23:07)
[2021-01-24 04:07] LABS: Activated Partial Thrombo Time 67.9 Seconds (26.0-36.0)
[2021-01-24] MEDS: Ipratropium/Albuterol Neb 3 ML IH SCH ×6 (04:13→23:44)
[2021-01-24 04:34] LABS: ABG Base Excess 8 mEq/L (-2 to 3); ABG HCO3 35 mEq/L (21-27); ABG Oxygen Saturation 95 % (95-98); ABG PCO2 61 mmHg (35-45); ABG PH 7.36 pH Units (7.32-7.45); ABG PO2 82 mmHg (85-104); ABG TCO2 37 mEq/L (20-26); Blood Gas Modality ASSIST CONTROL; Blood Gas VT 550 cc
[2021-01-24] MEDS: *HR* Metoprolol 5 MG/5 ML VIAL IVP PRN ×2 (05:13→11:49)
[2021-01-24] MEDS ORDERED: Furosemide 20 MG/2 ML VIAL IVP ONE (07:32)
[2021-01-24] MEDS: Pantoprazole 40 MG VIAL IVP SCH (08:11)
[2021-01-24] MEDS: Artificial Tears SOLN 15 ML BOTTLE BOTH EYES SCH ×5 (08:14→23:08)
[2021-01-24] MEDS: Piperacillin/Tazobactam 3.375 GM in 0.9 % Sodium Chloride Mini Bag 100 ML IVPB SCH ×3 (08:30→23:08)
[2021-01-24 08:50] LABS: Albumin 3.4 g/dL (3.5-5.7); Albumin/Globulin Ratio 1.1 (1.1-2.2); Bilirubin,Direct 0.1 mg/dL (0.0-0.2); Bilirubin,Indirect 0.3 mg/dL (0.0-1.0); Bilirubin,Total 0.4 mg/dL (0.3-1.0); Globulin 3.1 g/dL (2.4-3.5); Total Protein 6.5 g/dL (6.4-8.9)
[2021-01-24] MEDS: Sulfamethoxazole/Trimeth Oral Soln 400-80mg/10 ML UDC GTUBE SCH ×2 (09:00→20:22)
[2021-01-24] MEDS: Docusate Oral Soln 100 MG/10 ML UDC GTUBE SCH ×2 (09:00→20:23)
[2021-01-24] MEDS: Aspirin 81 MG TAB.CHEW PO SCH (09:01)
[2021-01-24] MEDS: Amiodarone Premix 360 MG/200 ML BAG IVC SCH ×2 (09:37→20:23)
[2021-01-24] MEDS: Chlorhexidine Rinse 15 ML MOUTHWASH MM SCH ×2 (09:37→20:22)
[2021-01-24] MEDS ORDERED: Bisacodyl 10 MG RECTAL SUPPOSITORY RC ONE (09:52)
[2021-01-24] MEDS: Norepinephrine 4 MG/254 ML IV.SOLN IVC SCH (11:50)
[2021-01-24] MEDS: Metoclopramide 10 MG/2 ML VIAL IVP SCH ×3 (11:50→23:07)
[2021-01-24] MEDS: Dexmedetomidine HCl 400 MCG/100 ML MLS IVC SCH ×2 (11:55→20:23)
[2021-01-24] MEDS: Heparin 25,000UNIT/250ML 1/2NS 25,000 UNIT/250 ML IV.SOLN IVC SCH (12:06)
[2021-01-24] MEDS: DilTIAZem 50 MG/50 ML IV.SOLN IVC SCH ×2 (13:46→20:23)
[2021-01-24] MEDS: FentaNYL (PF) 2,500 MCG/50 ML IV.SOLN IVC SCH (20:24)
[2021-01-25] MEDS: niCARdipine 20 MG/200 ML MLS IVC SCH (01:25)
[2021-01-25 03:27] LABS: Influenza A PCR Body Fluid NOT DETECTED; Influenza B PCR Body Fluid NOT DETECTED; RVP Body Fluid Source BAL
[2021-01-25 03:28] LABS: Basophils # 0.1 K/mcL (0.0-0.2); Basophils % 0.7 %; Eosinophils # 0.4 K/mcL (0.0-0.6); Eosinophils % 3.2 %; Hematocrit 30.7 % (37.5-50.1); Hemoglobin 9.4 g/dL (12.9-16.9); Immature Granulocytes % 1.8 % (0-4); Lymphocytes # 1.7 K/mcL (0.6-4.6); Lymphocytes % 12.7 %; Mean Corpuscular HGB Conc 30.6 g/dL (31.6-35.5); Mean Corpuscular Hemoglobin 29.2 pg (28.0-33.3); Mean Corpuscular Volume 95.3 fL (83.0-100.0); Mean Platelet Volume 9.8 fL (9.4-12.4); Monocytes # 1.3 K/mcL (0.0-1.3); Monocytes % 9.1 %; Platelet Count 362 K/mcL (140-400); Red Blood Count 3.22 M/mcL (4.19-5.50); Red Cell Distribution Width 13.9 % (11.5-14.5); Segmented Neutrophils % 72.5 %; White Blood Count 13.7 K/mcL (4.3-11.1)
[2021-01-25 03:43] LABS: BUN/Creatinine Ratio 32 (6-26); Blood Urea Nitrogen 29 mg/dL (8-23); Calcium 8.8 mg/dL (8.6-10.3); Carbon Dioxide 29 mEq/L (23-29); Chloride 110 mEq/L (98-107); Glucose 122 mg/dL (70-105); Magnesium 2.3 mg/dL (1.6-2.6); Osmolality,Calculated 309 (280-300); Sodium 146 mEq/L (136-145); eGFR For African Americans > 60 (> 60); eGFR For Non-African Americans > 60 (> 60)
[2021-01-25] MEDS: Artificial Tears SOLN 15 ML BOTTLE BOTH EYES SCH ×3 (03:46→12:11)
[2021-01-25] MEDS: Insulin LISPRO 300 UNITS/3 ML VIAL SUBQ SCH ×3 (03:47→11:22)
[2021-01-25] MEDS: Ipratropium/Albuterol Neb 3 ML IH SCH ×4 (04:19→15:45)
[2021-01-25 04:29] LABS: ABG Base Excess 6 mEq/L (-2 to 3); ABG HCO3 32 mEq/L (21-27); ABG Oxygen Saturation 98 % (95-98); ABG PCO2 53 mmHg (35-45); ABG PH 7.39 pH Units (7.32-7.45); ABG PO2 106 mmHg (85-104); ABG TCO2 34 mEq/L (20-26); Blood Gas VT 550 cc
[2021-01-25] MEDS: Amiodarone Premix 360 MG/200 ML BAG IVC SCH (04:48)
[2021-01-25] MEDS: DilTIAZem 50 MG/50 ML IV.SOLN IVC SCH ×2 (04:49→12:04)
[2021-01-25] MEDS: Metoclopramide 10 MG/2 ML VIAL IVP SCH ×2 (05:04→11:20)
[2021-01-25 06:48] LABS: RSV PCR Body Fluid NOT DETECTED
[2021-01-25] MEDS: *HR* Metoprolol 5 MG/5 ML VIAL IVP PRN (06:50)
[2021-01-25] MEDS: Piperacillin/Tazobactam 3.375 GM in 0.9 % Sodium Chloride Mini Bag 100 ML IVPB SCH (08:44)
[2021-01-25] MEDS: Chlorhexidine Rinse 15 ML MOUTHWASH MM SCH (08:47)
[2021-01-25] MEDS: Sulfamethoxazole/Trimeth Oral Soln 400-80mg/10 ML UDC GTUBE SCH (08:47)
[2021-01-25] MEDS: Pantoprazole 40 MG VIAL IVP SCH (08:47)
[2021-01-25] MEDS: Docusate Oral Soln 100 MG/10 ML UDC GTUBE SCH (08:47)
[2021-01-25] MEDS: Aspirin 81 MG TAB.CHEW PO SCH (08:47)
[2021-01-25] MEDS ORDERED: Furosemide 40 MG/4 ML VIAL IVP ONE (09:14)
[2021-01-25] MEDS: Norepinephrine 4 MG/254 ML IV.SOLN IVC SCH (12:05)
[2021-01-25 12:24] VITALS: BP 150/81
[2021-01-25 23:48] LABS: HSV Source BAL RLL
== END 2021-01-25 12:56 | disposition expired | DRG 228 ==
LOC: SAMDAY 06:08 → ICNU 11:18
PROVIDERS: ADMIT Thoracic Surgery (Cardiothoracic Vascular Surgery); ATTEND Thoracic Surgery (Cardiothoracic Vascular Surgery)